=== PATIENT | female | born 1950 | race Caucasian/White ===

== ENCOUNTER 2018-01-01 17:56 | Observation (INO) | payer OTHER ==
--- OUTSIDE RECORDS SUMMARY | 2018-01-01 17:58 | XMS REPORT | Clinical Summary ---
:1950 Author Organization [facility] Address [address] [place] [address] Care Team Providers Name Role Phone Jose Armando Faulkner MD Primary Care Provider Allergies Active Allergy Reactions Severity Noted Date Comments Mepenzolate [place] 03/21/2016 Codeine Itching 01/18/2016 Current Medications Prescription Sig. Disp. Refills Start End Date Status Date cholecalciferol, vitamin Take 2,000 Active D3, (VITAMIN D3) 2,000 Units by unit capsule capsule mouth daily. ascorbic acid, vitamin Take 500 mg Active C, (VITAMIN C) 500 MG by mouth tablet daily. aspirin (ECOTRIN) 81 MG Take 81 mg Active enteric coated tablet by mouth daily. magnesium oxide 250 mg Take 250 mg Active tablet by mouth daily. selenium 50 mcg tablet Take 50 mcg Active by mouth daily. [id number] Take by Active p-astx 1000-130(40-80) mouth daily. mg capsule omeprazole (PriLOSEC) 40 Take 40 mg Active MG capsule by mouth daily. coenzyme Q10 (CO Q-10) Take 100 mg Active 100 mg capsule by mouth daily. LUTEIN ORAL Take 1 Active tablet by mouth daily. rosuvastatin (CRESTOR) Take 40 mg Active 40 MG tablet by mouth daily. denosumab (PROLIA) 60 Inject 60 mg Active mg/mL syringe syringe under the skin once. EVERY 6 MONTHS DOCUSATE CALCIUM (STOOL Take 1 Active SOFTENER ORAL) tablet by mouth daily. anastrozole (ARIMIDEX) 1 Take 1 30 tablet 6 06/27/201 06/27/ Active mg chemo tablet tablet (1 mg 7 18 total) by mouth daily. hydroCHLOROthiazide TAKE ONE 30 tablet 11 Active (HYDRODIURIL) 25 MG TABLET BY 8 tablet MOUTH ONCE DAILY esomeprazole magnesium 20 mg as Active (NEXIUM ORAL) needed. GARLIC ORAL Take by Active mouth. glucosamine sulfate Take by Active (GLUCOSAMINE ORAL) mouth. vitamin B complex Take by Active (VITAMINS B COMPLEX mouth. ORAL) RESVERATROL ORAL Take by Active mouth. UNABLE TO FIND [facility] CHROMIUM ORAL Take by Active mouth. evolocumab (REPATHA Inject 1 mL 6 Syringe 4 Active SURECLICK) 140 mg/mL pen (140 mg 8 injector injection total) under the skin take as directed (every 2 weeks). Every 2 weeks metoprolol tartrate Take 1 180 tablet 3 12/25/19 Active (LOPRESSOR) 50 mg tablet tablet (50 8 19 mg total) by mouth 2 (two) times a day. valsartan (DIOVAN) 320 Take 1 90 tablet 4 12/27/19 Active MG tablet tablet (320 8 19 mg total) by mouth daily. pantoprazole (PROTONIX) Take 1 30 tablet 2 06/27/20 Discontinued 40 MG EC tablet tablet (40 6 17 mg total) by mouth daily. losartan (COZAAR) 100 MG Take 50 mg 12/25/19 Discontinued tablet by mouth 2 18 (two) times a day. metoprolol tartrate Take 50 mg 12/25/19 Discontinued (LOPRESSOR) 100 mg by mouth 2 18 tablet (two) times a day. resveratrol 100 mg Take by 11/20/19 Discontinued capsule mouth. 18 letrozole (FEMARA) 2.5 Take 1 90 tablet 3 01/17/20 Discontinued mg chemo tablet tablet (2.5 7 17 mg total) by mouth daily. hydroCHLOROthiazide Take 1 30 tablet 11 06/27/20 Discontinued (HYDRODIURIL) 25 MG tablet (25 7 17 tablet mg total) by mouth daily. NEXIUM 20 mg capsule TAKE ONE 30 capsule 0 02/09/20 Discontinued CAPSULE BY 7 17 MOUTH EVERY DAY letrozole (FEMARA) 2.5 Take 1 90 tablet 3 06/27/20 Discontinued mg chemo tablet tablet (2.5 7 17 mg total) by mouth daily. esomeprazole (NexIUM) 20 TAKE ONE 30 capsule 0 03/09/20 Discontinued MG capsule CAPSULE BY 7 17 MOUTH ONCE DAILY esomeprazole (NexIUM) 20 TAKE ONE 30 capsule 0 06/27/20 Discontinued MG capsule CAPSULE BY 7 17 MOUTH ONCE DAILY CHROMIUM ORAL Take 1 11/20/19 Discontinued tablet by 18 mouth daily. GLUCOSAMINE/CHONDROITIN Take by 11/20/19 Discontinued SULF A mouth. 18 (GLUCOSAMINE-CHONDROITIN ORAL) b complex vitamins Take 1 11/20/19 Discontinued capsule capsule by 18 mouth daily. GARLIC ORAL Take by 11/20/19 Discontinued mouth. 18 esomeprazole (NexIUM) 40 Take 1 90 capsule 3 11/20/19 Discontinued MG capsule capsule (40 7 18 mg total) by mouth daily before breakfast. evolocumab (REPATHA Inject 1 mL 6 Syringe 4 12/25/19 Discontinued SURECLICK) 140 mg/mL pen (140 mg 7 18 injector injection total) under the skin take as directed (every 2 weeks). Every 2 weeks losartan (COZAAR) 100 MG Take 0.5 180 tablet 4 12/27/19 Discontinued tablet tablets (50 8 18 mg total) by mouth 2 (two) times a day. 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 01/18/2016 Estrogen receptor positive 01/18/2016 Encounters Date Type Specialty Care Team Description 12/28/2017 Telephone Neurology David Caldera MD 12/26/2017 Nurse Only Oncology Alyson, Osteopenia of multiple Rayna Sahu MD sites (Primary Dx) 12/26/2017 Lab Lab Alyson, Malignant neoplasm of Rayna Sahu MD female breast, unspecified estrogen receptor status, unspecified laterality, unspecified site of breast 12/26/2017 Office Visit Oncology Alyson, 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 (Primary Dx); Rayna Sahu MD Osteopenia of multiple sites 12/26/2017 Office Visit Neurology David Caldera, Cerebral infarction, unspecified mechanism (Primary Dx) 12/26/2017 Orders Only Oncology Chuy, Malignant neoplasm of Anjali, CHERELLE female breast, unspecified estrogen receptor status, unspecified laterality, unspecified site of breast (Primary Dx) 12/24/2017 Office Visit Cardiology Brielle West Cerebrovascular accident ( CVA) due to occlusion of right posterior cerebral artery (Primary Dx); MD Joanna Essential hypertension; Hyperlipidemia, unspecified hyperlipidemia type; Atherosclerosis of elem coronary artery of elem heart without angina pectoris 11/27/2017 Refill Neurology David Caldera MD 11/26/2017 Hospital Encounter Procedural Cardiology Brielle West Essential hypertension MD Joanna 11/19/2017 Office Visit Cardiology Brielle West Essential hypertension ( Primary Dx); MD Joanna Cerebrovascular accident (CVA) due to occlusion of right posterior cerebral artery; Hyperlipidemia, unspecified hyperlipidemia type; Chest pain, unspecified type; Palpitations 10/17/2017 Office Visit Otolaryngology Devol, Tongue lesion (Primary Edwin Logan MD Dx) 08/09/2017 Hospital Encounter Radiology Niravath, 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; Rayna Sahu MD Osteopenia of multiple sites 08/09/2017 Hospital Encounter Radiology Niravath, 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; Rayna Sahu MD Osteopenia of multiple sites 08/09/2017 Ancillary Orders Radiology Niravath, 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; Rayna Sahu MD Osteopenia of multiple sites 07/12/2017 Telephone Neurology David Caldera MD 07/12/2017 Orders Only Neurology David Caldera MD 07/12/2017 Telephone Neurology David Caldera MD 06/27/2017 Nurse Only Oncology David Caldera Cerebral infarction, MD unspecified mechanism (Primary Dx) 06/27/2017 Nurse Only Oncology Hermelindo, Osteopenia of multiple Sukhwinder sites (Primary Dx) MD Alyson Diaz Polly A., MD 06/27/2017 Lab Lab David Caldera Cerebral infarction, MD unspecified mechanism 06/27/2017 Office Visit Oncology Alyson, 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 (Primary Dx); Rayna Sahu MD Osteoporosis, unspecified osteoporosis type, unspecified pathological fracture presence 06/27/2017 Office Visit Neurology David Caldera Cerebral infarction, MD unspecified mechanism (Primary Dx) 06/27/2017 Transcribe Orders Neurology David Caldera, Cerebral infarction, unspecified mechanism (Primary Dx) 06/27/2017 Orders Only Oncology Darío, 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 (Primary Dx); LIONEL Mejia Osteopenia of multiple sites 06/27/2017 Refill Oncology Jackie Chanel MA 05/29/2017 Orders Only Oncology Samuel Sylvester, PharmD 04/25/2017 Refill Oncology Sukhwinder Casarez MD 04/04/2017 Office Visit Otolaryngology Carlos, Tongue lesion (Primary Edwin Logan MD Dx) 03/09/2017 Refill Oncology Sukhwinder Casarez MD 02/08/2017 Refill Oncology Sukhwinder Casarez MD 01/16/2017 Nurse Only Oncology Hermelindo, Osteopenia (Primary Sukhwinder Dx) MD Alyson Diaz Polly A., MD 01/16/2017 Office Visit Oncology Hermelindo, 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 (Primary Dx); Sukhwinder Estrogen receptor positive MD Joe 01/08/2017 Refill Oncology Sukhwinder Casarez MD 01/01/2017 Office Visit Otolaryngology Carlos, Tongue lesion (Primary Edwin Logan MD Dx) after 12/31/2016 Family History Medical History Relation Name Comments Heart disease Father Transient ischemic attack Father Heart disease Mother Transient ischemic attack Mother Cancer Paternal Aunt Relation Name Status Comments Father Mother Paternal Aunt Social History Tobacco Use Types Packs/Day Years Used Date Never Smoker Smokeless Tobacco: Never Used Alcohol Use Drinks/Week oz/Week Comments No Sex Assigned at Date Recorded Not on file Last Filed Vital Signs Vital Sign Reading Time Taken Blood Pressure 135/60 12/26/2017 3:12 PM CDT Pulse 61 12/26/2017 3:12 PM CDT Temperature 37.3 C (99.1 F) 12/26/2017 2:27 PM CDT Respiratory Rate 18 12/26/2017 2:27 PM CDT Oxygen Saturation 96% 12/26/2017 2:27 PM CDT Inhaled Oxygen Concentration - - Weight 66.2 kg (146 lb) 12/26/2017 3:12 PM CDT Height 157.5 cm (5' 2") 12/26/2017 3:12 PM CDT Body Mass Index 26.7 12/26/2017 3:12 PM CDT Plan of Treatment Date Type Specialty Care Team Description 07/08/2018 Nurse Only Oncology Rayna Shields MD [address] [facility] [address] [place], [place] [id number] 07/08/2018 Office Visit Oncology Rayna Shields MD [address] [facility] [address] [place], [place] [phone] 07/08/2018 Office Visit Neurology David Caldera MD [address] [facility] [address] [place], [place] [phone] Health Maintenance Due Date Last Done Comments COLONOSCOPY 2000 MAMMOGRAM 2000 SHINGRIX VACCINE (#1) 2000 ZOSTER VACCINE 2010 PNEUMOCOCCAL POLYSACCHARIDE VACCINE AGE 65 AND OVER 2015 PNEUMOCOCCAL-13 2015 INFLUENZA VACCINE 04/03/2018 Procedures Procedure Name Priority Date/Time Associated Comments Diagnosis ECHOCARDIOGRAM STRESS Routine 11/26/2017 2:16 Essential Results for this TEST TREADMILL PM CDT hypertension procedure are in the results section. CV STRESS TEST Routine 11/26/2017 2:16 Essential Results for this ECHOCARDIOGRAPHY PM CDT hypertension procedure are in the results section. after 12/31/2016 Results Estimated GFR (12/26/2017 1:57 PM)Only the most recent of3 resultswithin the time period is included. Component Value Ref Range GFR Non Af Amer 71 mL/min/1.73 m2 GFR Af Amer 87 mL/min/1.73 m2 Comment: Chronic kidney disease: <60 mL/min/1.73m2 Kidney failure: <15 mL/min/1.73m2 The estimated GFR is calculated from the IDMS-traceable Modification of Diet in Renal Disease Equation. The accuracy of the calculation is poor when the creatinine is normal. Calculated values >90 mL/min/1.73m2 are not reported. This equation has not been validated in children (<18 years), women, the elderly (>70 years), or ethnic groups other than Caucasians and Americans. Specimen Performing Laboratory Plasma specimen [facility] DEPARTMENT OF PATHOLOGY AND GENOMIC MEDICINE [address] [place] [address] CBC with platelet and differential (12/26/2017 1:57 PM)Only the most recent of3 resultswithin the time period is included. Component Value Ref Range WBC 7.88 4.50 - 11.00 k/uL RBC 4.27 4.20 - 5.50 m/uL HGB 12.9 12.0 - 16.0 g/dL HCT 39.2 37.0 - 47.0 % MCV 91.8 82.0 - 100.0 fL MCH 30.2 27.0 - 34.0 pg MCHC 32.9 31.0 - 37.0 g/dL RDW - SD 41.9 37.0 - 55.0 fL MPV 10.3 8.8 - 13.2 fL Platelet count 266 150 - 400 k/uL Nucleated RBC 0.00 /100 WBC Neutrophils 63.7 39.0 - 69.0 % Lymphocytes 23.9 (L) 25.0 - 45.0 % Monocytes 9.9 0.0 - 10.0 % Eosinophils 1.8 0.0 - 5.0 % Basophils 0.4 0.0 - 1.0 % Immature granulocytes 0.3Comment: "Immature granulocytes" 0.0 - 1.0 % (promyelocytes, myelocytes, metamyelocytes) Specimen Performing Laboratory Blood [facility] DEPARTMENT OF PATHOLOGY AND GENOMIC MEDICINE [address] [place] [address] Ionized calcium (12/26/2017 1:57 PM)Only the most recent of2 resultswithin the time period is included. Component Value Ref Range pH 7.34 Ionized calcium 1.29 1.11 - 1.32 mmol/L Specimen Performing Laboratory Plasma specimen [facility] DEPARTMENT OF PATHOLOGY AND GENOMIC MEDICINE [address] [place] [address] Lipid panel (12/26/2017 1:57 PM)Only the most recent of2 resultswithin the time period is included. Component Value Ref Range Cholesterol 126 <200 mg/dL Triglycerides 164 (H) <150 mg/dL HDL cholesterol 44 >40 mg/dL LDL cholesterol 64Comment: Result obtained by direct LDL <100 mg/dL measurement Lipid panel interpretation SeeBelow Comment: Total Cholesterol (mg/dL) <200 Desirable 694-539Jyxhjormvz-dxjr >=240High Triglycerides (mg/dL) <150 Normal 111-089Axdblcdutr-says 200-499High >=500Very high HDL Cholesterol (mg/dL) <40Low (male) <40Low (female) LDL Cholesterol (mg/dL) <100 Optimal 100-129Near or above optimal 950-306Dtfyewmesb-mqxq 160-189High >=190Very high Risk Catergories that modify LDL goals. Risk CatergoriesLDL goal (mg/dL) CHD and CHD risk equivalent<100 (10-year risk >20%) Multiple (2+) risk factors <130 (10-year risk=<20%) 0-1 risk factors <160 (<10-year risk) Defining levels of lipids in metabolic syndrome Triglycerides>=150 mg/dL HDL Cholesterol Men<40 mg/dL Women<40 mg/dL Non-HDL cholesterol is a second target for therapy in persons with high triglycerides (>=200 mg/dL) Specimen Performing Laboratory Plasma specimen [facility] DEPARTMENT OF PATHOLOGY AND GENOMIC MEDICINE [address] [place] [address] Comprehensive metabolic panel (12/26/2017 1:57 PM)Only the most recent of4 resultswithin the time period is included. Component Value Ref Range Sodium 140 135 - 148 mEq/L Potassium 3.8 3.5 - 5.0 mEq/L Chloride 101 98 - 112 mEq/L CO2 28 24 - 31 mEq/L Anion gap 11 7 - 15 mEq/L Comment: Starting from December , anion gap calculation no longer incorporates potassium. Please note the change. BUN 15 8 - 23 mg/dL Creatinine 0.8 0.5 - 0.9 mg/dL Glucose 100 (H) 65 - 99 mg/dL Calcium 9.9 8.8 - 10.2 mg/dL Protein 7.3 6.3 - 8.3 g/dL Comment: Sparks 4.6-7.0 g/dL 1 week 4.4-7.6 g/dL 7 months-1year5.1-7.3 g/dL 1-2 years5.6-7.5 g/dL >3 years6.0-8.0 g/dL 18-150 6.3-8.3 g/dL Albumin 3.8 3.5 - 5.0 g/dL A/G ratio 1.1 0.7 - 3.8 Alkaline phosphatase 64 35 - 104 U/L AST 26 10 - 35 U/L ALT 23 5 - 50 U/L Total bilirubin 0.3 0.0 - 1.2 mg/dL Specimen Performing Laboratory Plasma specimen [facility] DEPARTMENT OF PATHOLOGY AND GENOMIC MEDICINE [address] [place] [address] Echocardiogram stress Doppler with contrast 3d if needed (11/26/2017 2:16 PM) Specimen Performing Laboratory [facility] [address] [place] [address] Narrative [facility] Stress Echocardiography Report Pat.Name:SAKINA LOERA Pat.ID:[id number] .Date: 11/26/2017 Refer.MD:ELYSSA LONG MD Exam Time: 1:07:00 PMStudy Type:Stress Echo Height:62inWeight:154lb BSA: 1.71 m2 DOBAge:1950,67Y Sex: FEMALEBP:127/59 HR:68 bpm Sonogrphr: Mikki Sotelo, RCS, RCCS, CCT Pat. Stat.:OutpatientRoom:[facility] TapeVol: [facility], Study Status:Revised Echo Event ID:[id number] Order ID:[id number] Reason for Study:Hypertension; re-eval no status change History / Clinical:Hypertension Procedures:2D Echo, Colorflow Doppler Race: SUMMARY: Overall Stress Interp: Normal Stress echo. No evidence ofischemia. FINDINGS: RESTING FINDINGS LV: LV size is normal. LV EF is normal. Overall wall motion is normal.Estimated EF is 60-64%. RV: RV size is upper limits of normal. RV systolic function is normal. LA: LA size is normal. RA: RA size is normal. AO: Aortic root diameter is normal. MERCED: No pericardial effusion. AV: No structural AV abnormalities noted. MV: No structural MV abnormalities noted. PV: No structural PV abnormalities noted. TV: No structural TV abnormalities noted. A trace of tricuspid regurgitation Mckeon: LV relaxation is reduced, appropriate for age. LV filling pressureis normal. Other:Insufficient TR jet to estimate PA systolic pressure. STRESS FINDINGS LV: LV EF is normal. Overall wall motion is normal. Estimated EF is65-69% STRESS: Baseline Vital Signs:Intervention: Treadmill ECG: NormalProtocol:Wilson HR:68Duration: 06:29 BP:127/59METS: 8.4 Stress Test Results: Max HR:139 Target HR: 153 % Target:91 % Max BP:196/84O2 sat:98 % Max RPP: 63264 Symptoms and Complications: Terminated: Patient achieved greater than or equal 85% maximal predicted heart rate for age Overall Stress Interp: Normal Stress echo. No evidence ofischemia. Stress ECG Interp: Normal Stress ECG. No ST changes occurred during stress., Blood Pressure during stress suggestive of hypertensive response MEASUREMENTS: 2D Parasternal Long Orion LVOT 1.9 cmLA Ds3.8 cm LVIDd3.9 cmIndex 2.3 cm/m Ao An2.2 cm LVIDs2.7 cmAo Rtd 2.8 cm Index1.6 cm/m LV%fs 32.6 % LV Djls503.4 g(87-129) IVSd 1 cmLVM Index 65.7 g/m2 LVPWd0.9 cmRWT0.5 LA Volume LA Vol45.9 mlIndex 26.9 ml/m Signed 11/27/2017 4:35:14 PM Elyssa Long M.D. Revised Procedure Note Interface, Radiology Results In - 11/27/2017 4:35 PM CDT [facility] Stress Echocardiography Report Pat.Name: SAKINA LOERA Pat.ID: [id number] St.Date: 11/26/2017 Refer.MD: ELYSSA LONG MD Exam Time: 1:07:00 PM Study Type:Stress Echo Height: 62in Weight: 154lb BSA: 1.71 m2 Age: 10 1950,67Y Sex: FEMALE BP: 127/59 HR: 68 bpm Sonogrphr: Mikki Sotelo, RCS, RCCS, CCT Pat. Stat.:Outpatient Room: [facility] Tape Vol: [facility], Study Status:Revised Echo Event ID:[id number] Order ID: [id number] Reason for Study:Hypertension; re-eval no status change History / Clinical:Hypertension Procedures:2D Echo, Colorflow Doppler Race: SUMMARY: Overall Stress Interp: Normal Stress echo. No evidence of ischemia. FINDINGS: RESTING FINDINGS LV: LV size is normal. LV EF is normal. Overall wall motion is normal. Estimated EF is 60-64%. RV: RV size is upper limits of normal. RV systolic function is normal. LA: LA size is normal. RA: RA size is normal. AO: Aortic root diameter is normal. MERCED: No pericardial effusion. AV: No structural AV abnormalities noted. MV: No structural MV abnormalities noted. PV: No structural PV abnormalities noted. TV: No structural TV abnormalities noted. A trace of tricuspid regurgitation Mckeon: LV relaxation is reduced, appropriate for age. LV filling pressure is normal. Other: Insufficient TR jet to estimate PA systolic pressure. STRESS FINDINGS LV: LV EF is normal. Overall wall motion is normal. Estimated EF is 65-69% STRESS: Baseline Vital Signs: Intervention: Treadmill ECG: Normal Protocol: Wilson HR: 68 Duration: 06:29 BP: 127/59 METS: 8.4 Stress Test Results: Max HR: 139 Target HR: 153 % Target: 91 % Max BP: 196/84 O2 sat: 98 % Max RPP: 01191 Symptoms and Complications: Terminated: Patient achieved greater than or equal 85% maximal predicted heart rate for age Overall Stress Interp: Normal Stress echo. No evidence of ischemia. Stress ECG Interp: Normal Stress ECG. No ST changes occurred during stress., Blood Pressure during stress suggestive of hypertensive response MEASUREMENTS: 2D Parasternal Long Orion LVOT 1.9 cm LA Ds 3.8 cm LVIDd 3.9 cm Index 2.3 cm/m Ao An 2.2 cm LVIDs 2.7 cm Ao Rtd 2.8 cm Index 1.6 cm/m LV%fs 32.6 % LV Mass 112.4 g (87-129) IVSd 1 cm LVM Index 65.7 g/m2 LVPWd 0.9 cm RWT 0.5 LA Volume LA Vol 45.9 ml Index 26.9 ml/m Signed 11/27/2017 4:35:14 PM Elyssa Long M.D. Revised Cv exercise treadmill stress (nuclear or echo) (11/26/2017 2:16 PM) Component Value Ref Range Resting HR 67 Resting BP 127 Peak MET Achieved 8.4 Protocol Name WILSON Time in Exercise Phase 00:06:29 Max Systolic BP 196 Max Diastolic BP 84 Max Heart Rate 139 Max Predicted Heart Rate 153 Target HR Formula (220 - Age)*85% Test Indication HYPERTENSION Arrhy During Ex ECG Interp Before EX ECG Interp During Ex Ex Summary Comment Overall HR Response to Exercise Overall BP Response To Exercise Reason for Termination Fatigue Stress Test Impression Waveform interpreted in report associated with image study. No interpretation is provided as part of this Stress ECG report.--Electronically Signed By Ethan LUNA, Elyssa Rainey ([id number]), web content editor Shadia Chan ([id number]) on 11/29/2017 8:34:40 AM Specimen Performing Laboratory [facility] MUSE [address] [place] [address] Ct cardiac calcium score (11/26/2017 12:04 PM) Specimen Performing Laboratory [facility] [address] [place] [address] Narrative Nuclear Cardiology and Cardiac CT [address] [place] [address] CT Calcium Scoring Report Pat.Name:SAKINA LOERA Pat.ID:[id number] .Date: 11/26/2017 Refer.MD:BRIELLE WEST MD Exam Time: 11:59:00 AM Study Type:CT Calcium Scoring Height:60inWeight:152lb BSA: 1.66 m2 DOBAge:1950,67Y Sex: FEMALEHR: 63 bpm Nuclear Tech:RT Forrest(NM)(CT), [facility] CPT - 4: [facility] [employer] Nuclear Event ID:[id number] Order ID:[id number] Procedures:CT Flash mode SUMMARY: Technique: Sequential 3mm CT cuts were obtained through the chest using the Siemens Somatom Force CT scanner with ECG gating.Interactive image viewing and volumetric display and analysis were also performed.The CAC score was quantified using the Agaston scoring method. Non-contrast Cardiac CT results are as follows: The total Coronary Artery Calcium Score (CACS) is 270 .Calcium is distributed in the coronary arteries as follows: Left main: 5 .Left Anterior Descending (LAD): 178 .Left Circumflex (LCx): 34 .Right Coronary Artery (RCA): 53 . The non-contrast CT shows a normal cardiac size, no pericardial abnormalities, a normal aortic root of 2.9cm, a normal thoracic ascending aorta of 2.8cm, and a normal descending thoracic aorta of 2.0cm. The left main and right coronary arteries appear to originate normally from the left and right sinus of Valsalva.The right coronary artery is dominant. Calcification in the aortic arch and descending thoracic aorta. Non-Cardiac Findings:Limited lung araiza demonstrate no significant abnormality. Bilateral breast implants. Conclusion: Abnormal non-contrast cardiac CT. The coronary artery calcium score indicates a moderate extent of coronary atherosclerosis with a 1-2% / year risk of a major cardiac event.The CACS is at the 89th percentile based on age and gender. Recommendation: (1) Intensive risk factor modification is indicated to prevent further progression of coronary atherosclerosis.Unless contraindicated, low dose aspirin (81mg) is recommended in addition to treatment of hyperlipidemia with target LDL levels <70mg/dl. (2) Stress myocardial perfusion imaging may be helpful in selected patients such as those with metabolic syndrome or diabetes mellitus in whom silent myocardial ischemia is more prevalent. Signed 11/28/2017 09:24 AM Eduardo Delgado MD Procedure Note Interface, Radiology Results In - 11/28/2017 9:24 AM CDT Nuclear Cardiology and Cardiac CT [address] [place] [address] CT Calcium Scoring Report Pat.Name: SAKINA LOERA Pat.ID: [id number] .Date: 11/26/2017 Refer.MD: BRIELLE WEST MD Exam Time: 11:59:00 AM Study Type:CT Calcium Scoring Height: 60in Weight: 152lb BSA: 1.66 m2 Age: 10 1950,67Y Sex: FEMALE HR: 63 bpm Nuclear Tech:Alexei Oneal RT(NM)(CT), [facility] CPT - 4: [facility] [employer] Nuclear Event ID:[id number] Order ID: [id number] Procedures:CT Flash mode SUMMARY: Technique: Sequential 3mm CT cuts were obtained through the chest using the Siemens Somatom Force CT scanner with ECG gating. Interactive image viewing and volumetric display and analysis were also performed. The CAC score was quantified using the Agaston scoring method. Non-contrast Cardiac CT results are as follows: The total Coronary Artery Calcium Score (CACS) is 270 . Calcium is distributed in the coronary arteries as follows: Left main: 5 . Left Anterior Descending (LAD): 178 . Left Circumflex (LCx): 34 . Right Coronary Artery (RCA): 53 . The non-contrast CT shows a normal cardiac size, no pericardial abnormalities, a normal aortic root of 2.9cm, a normal thoracic ascending aorta of 2.8cm, and a normal descending thoracic aorta of 2.0cm. The left main and right coronary arteries appear to originate normally from the left and right sinus of Valsalva. The right coronary artery is dominant. Calcification in the aortic arch and descending thoracic aorta. Non-Cardiac Findings: Limited lung araiza demonstrate no significant abnormality. Bilateral breast implants. Conclusion: Abnormal non-contrast cardiac CT. The coronary artery calcium score indicates a moderate extent of coronary atherosclerosis with a 1-2% / year risk of a major cardiac event. The CACS is at the 89th percentile based on age and gender. Recommendation: (1) Intensive risk factor modification is indicated to prevent further progression of coronary atherosclerosis. Unless contraindicated, low dose aspirin (81mg) is recommended in addition to treatment of hyperlipidemia with target LDL levels <70mg/dl. (2) Stress myocardial perfusion imaging may be helpful in selected patients such as those with metabolic syndrome or diabetes mellitus in whom silent myocardial ischemia is more prevalent. Signed 11/28/2017 09:24 AM Eduardo Delgado MD ECG 12 lead (11/19/2017 9:08 AM) Component Value Ref Range Ventricular rate 62 Atrial rate 62 TX interval 184 QRSD interval 88 QT interval 410 QTC interval 416 P axis 1 69 QRS axis 1 37 T wave axis 64 EKG impression Normal sinus rhythm-Normal ECG- Specimen Performing Laboratory [facility] [place] [address] [place] [address] Bone Density (08/09/2017 2:00 PM) Specimen Performing Laboratory [facility] [address] [place] [address] Narrative EXAMINATION:BONE DENSITY CLINICAL HISTORY:C50.912 Malignant neoplasm of unspecified site of left female breast, M85.89 Other specified disorders of bone density and structure multiple sites, Annual COMPARISON:None. The results of this study expressed as bone mineral density (BMD) were as follows: AP spine (L1-L4) BMD: 0.993 g/cm2 T-Score: -1.6 Z-Score: -0.2 Percent change: No prior exam. % Dual Femur (Total Mean): BMD: 0.747 g/cm2 T-Score: -2.1 Z-Score:-0.9 Percent change: No prior exam. % Femur FRAX: Risk factors: None. 10 year probability of fracture: 1.Major osteoporotic: 19.6% 2.Hip: 6.8% 3.Based on femur left neck BMD Trabecular Bone Score (TBS): TBS L1-L4: 1.374,normal. The 10 year probability of fracture, adjusted for TBS: 1.Major Osteoporotic Fracture: 16.9% 2.Hip Fracture:5.3% Impression:Bone mineral density values as above. Notes: *The world health organization (WHO) has classified the patient's T-score as follows: Normal=T-score at or above -1.0 SD Osteopenia=T-score between -1.0 and -2.5 SD Osteoporosis=T-score at or below minus 2.5 SD For premenopausal women, men under the age 50 years, and children the WHO classification does not apply. In these individuals please assess bone mineral density with Z scores for each skeletal site examined. Z scores above -2.0: Within expected range for age. Z scores lower than -2.0:Low bone density for age. The TBS is derived from the texture of the DEXA image and has been shown to be related to bone microarchitecture and fracture risk. This data provides information independent of BMD value; is used as a complement to the data obtained from the DEXA analysis and the clinical examination. The TBS can assist the healthcare professional in assessment of fracture risk and in monitoring the effect of treatments on patient over time. 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 The results of this study expressed as bone mineral density (BMD) were as follows: AP spine (L1-L4) BMD: 0.993 g/cm2 T-Score: -1.6 Z-Score: -0.2 Percent change: No prior exam. % Dual Femur (Total Mean): BMD: 0.747 g/cm2 T-Score: -2.1 Z-Score: -0.9 Percent change: No prior exam. % Femur FRAX: Risk factors: None. 10 year probability of fracture: 1. Major osteoporotic: 19.6% 2. Hip: 6.8% 3. Based on femur left neck BMD Trabecular Bone Score (TBS): TBS L1-L4: 1.374, normal. The 10 year probability of fracture, adjusted for TBS: 1. Major Osteoporotic Fracture: 16.9% 2. Hip Fracture: 5.3% Impression: Bone mineral density values as above. Notes: *The world health organization (WHO) has classified the patient's T-score as follows: Normal=T-score at or above -1.0 SD Osteopenia=T-score between -1.0 and -2.5 SD Osteoporosis=T-score at or below minus 2.5 SD For premenopausal women, men under the age 50 years, and children the WHO classification does not apply. In these individuals please assess bone mineral density with Z scores for each skeletal site examined. Z scores above -2.0: Within expected range for age. Z scores lower than -2.0: Low bone density for age. The TBS is derived from the texture of the DEXA image and has been shown to be related to bone microarchitecture and fracture risk. This data provides information independent of BMD value; is used as a complement to the data obtained from the DEXA analysis and the clinical examination. The TBS can assist the healthcare professional in assessment of fracture risk and in monitoring the effect of treatments on patient over time. [facility]-[id number] after 12/31/2016 Insurance Payer Benefit Plan / Group Subscriber ID Type Phone Address [employer] MED[employer]ARE PPO/PFFS/ERS [facility] xxxxxxxxx PPO Home: Carline MCCANN PT [phone] [place] [phone]
--- NOTE | 2018-01-01 18:38 | EDPHYS ---
Physician Documentation [facility] Name: Sakina Maya Age: 67 yrs Sex: Female : 1950 Arrival Date: 01/01/2018 Time: 18:00 Bed 6 Private MD: Jose Armando Faulkner S ED Physician Juan Manuel Hitchcock HPI: 01/01 18:34 This 67 yrs old Female presents to ER via Ambulatory with complaints of Chest kevin Pain, Weakness. 18:34 The patient or guardian reports chest pain that is located primarily in the substernal kevin area, anterior chest wall. Onset: just prior to arrival, today. The pain radiates to both arms. Associated signs and symptoms: Pertinent positives: lightheadedness. The chest pain is described as a heaviness, a pressure. Modifying factors: The symptoms are alleviated by nothing. the symptoms are aggravated by nothing. Severity of pain: At its worst the pain was mild in the emergency department the pain is unchanged. The patient has not experienced similar symptoms in the past. Historical: - Allergies: 18:13 Codeine; ch 18:13 Cantil; ch - PMHx: 18:13 CVA; Hypertension; breast cancer; remission; ch - PSHx: 18:13 double masectomy; Cholecystectomy; Hysterectomy; ch 18:13 Tonsillectomy; ch - Immunization history:: Adult Immunizations up to date. - Social history:: Smoking status: Patient/guardian denies using tobacco. - Family history:: not pertinent. ROS: 18:34 Constitutional: Negative for fever, chills, and weight loss, Eyes: Negative for injury, kevin pain, redness, and discharge, ENT: Negative for injury, pain, and discharge, Neck: Negative for injury, pain, and swelling, Respiratory: Negative for shortness of breath, cough, wheezing, and pleuritic chest pain, Abdomen/GI: Negative for abdominal pain, nausea, vomiting, diarrhea, and constipation, Back: Negative for injury and pain, : Negative for injury, bleeding, discharge, and swelling, MS/Extremity: Negative for injury and deformity, Skin: Negative for injury, rash, and discoloration, Neuro: Negative for headache, weakness, numbness, tingling, and seizure, Psych: Negative for depression, anxiety, suicide ideation, homicidal ideation, and hallucinations, Allergy/Immunology: Negative for hives, rash, and allergies, Endocrine: Negative for neck swelling, polydipsia, polyuria, polyphagia, and marked weight changes, Hematologic/Lymphatic: Negative for swollen nodes, abnormal bleeding, and unusual bruising. 18:34 Cardiovascular: Positive for chest pain. Exam: 18:34 Constitutional: This is a well developed, well nourished patient who is awake, alert, kevin and in no acute distress. Head/Face: Normocephalic, atraumatic. Eyes: Pupils equal round and reactive to light, extra-ocular motions intact. Lids and lashes normal. Conjunctiva and sclera are non-icteric and not injected. Cornea within normal limits. Periorbital areas with no swelling, redness, or edema. ENT: Nares patent. No nasal discharge, no septal abnormalities noted. Tympanic membranes are normal and external auditory canals are clear. Oropharynx with no redness, swelling, or masses, exudates, or evidence of obstruction, uvula midline. Mucous membranes moist. Neck: Trachea midline, no thyromegaly or masses palpated, and no cervical lymphadenopathy. Supple, full range of motion without nuchal rigidity, or vertebral point tenderness. No Meningismus. Chest/axilla: Normal chest wall appearance and motion. Nontender with no deformity. No lesions are appreciated. Cardiovascular: Regular rate and rhythm with a normal S1 and S2. No gallops, murmurs, or rubs. Normal PMI, no JVD. No pulse deficits. Respiratory: Lungs have equal breath sounds bilaterally, clear to auscultation and percussion. No rales, rhonchi or wheezes noted. No increased work of breathing, no retractions or nasal flaring. Abdomen/GI: Soft, non-tender, with normal bowel sounds. No distension or tympany. No guarding or rebound. No evidence of tenderness throughout. Back: No spinal tenderness. No costovertebral tenderness. Full range of motion. Skin: Warm, dry with normal turgor. Normal color with no rashes, no lesions, and no evidence of cellulitis. MS/ Extremity: Pulses equal, no cyanosis. Neurovascular intact. Full, normal range of motion. Neuro: Awake and alert, GCS 15, oriented to person, place, time, and situation. Cranial nerves II-XII grossly intact. Motor strength 5/5 in all extremities. Sensory grossly intact. Cerebellar exam normal. Normal gait. Psych: Awake, alert, with orientation to person, place and time. Behavior, mood, and affect are within normal limits. 18:34 Musculoskeletal/extremity: DVT Exam: No signs of deep vein thrombosis. no pain, no swelling, no tenderness, negative Homans' sign noted on exam, no appreciated bluish discoloration, no erythema, no increased warmth. Vital Signs: 18:13 BP 178 / 70; Pulse 63; Resp 15; Temp 98.7; Pulse Ox 99% on R/A; Weight 65.77 kg; Height ch 5 ft. (152.40 cm); Pain 1/10; 19:45 BP 189 / 67 RA; Pulse 63; Resp 20; Pulse Ox 97% on R/A; mt 19:45 BP 163 / 68 LA; mt 21:29 BP 174 / 64; Pulse 59; Resp 16; Pulse Ox 99% on R/A; tl2 18:13 Body Mass Index 28.32 (65.77 kg, 152.40 cm) [facility]: 18:19 Patient medically screened. [facility] 18:36 Data reviewed: vital signs, nurses notes, lab test result(s), EKG, radiologic studies, kevin plain films. 01/01 18:34 Order name: Basic Metabolic Panel [facility] 01/01 18:34 Order name: BNP; Complete Time: 19:24 [facility] 01/01 18:34 Order name: CBC with Diff; Complete Time: 19:24 [facility] 01/01 18:34 Order name: Ckmb [facility] 01/01 18:34 Order name: CPK [facility] 01/01 18:34 Order name: LFT's [facility] 01/01 18:34 Order name: Magnesium [facility] 01/01 18:34 Order name: PT-INR; Complete Time: 19:24 [facility] 01/01 18:34 Order name: Ptt, Activated; Complete Time: 19:24 [facility] 01/01 18:34 Order name: Troponin (emerg Dept Use Only); Complete Time: 19:24 [facility] 01/01 18:34 Order name: D-Dimer; Complete Time: 19:24 [facility] 01/01 18:34 Order name: Lipase [facility] 01/01 18:34 Order name: Basic Metabolic Panel EDMS 01/01 19:43 Order name: Urine Dipstick--Ancillary (enter results) em1 01/01 18:34 Order name: XRAY Chest (1 view); Complete Time: 19:24 [facility] 01/01 18:34 Order name: EKG; Complete Time: 18:35 [facility] 01/01 18:34 Order name: Cardiac monitoring; Complete Time: 19:20 [facility] 01/01 18:34 Order name: EKG - Nurse/Tech; Complete Time: 19:21 [facility] 01/01 18:34 Order name: IV Saline Lock; Complete Time: 19:21 [facility] 01/01 18:34 Order name: Labs collected and sent; Complete Time: 19:21 [facility] 01/01 18:34 Order name: O2 Per Protocol; Complete Time: 19:21 [facility] 01/01 18:41 Order name: CONS Physician Consult EDVT 01/01 18:41 Order name: Echo with Doppler EDVT 01/01 19:49 Order name: Urine Dipstick-Ancillary EDVT 01/01 22:45 Order name: CT EDVT 01/01 18:34 Order name: O2 Sat Monitoring; Complete Time: 19:21 [facility] 01/01 18:34 Order name: Urine Dipstick-Ancillary (obtain specimen); Complete Time: 19:21 [facility] 01/01 18:34 Order name: Bilateral blood pressure; Complete Time: 19:47 [facility] Administered Medications: Discontinued: NS 0.9% 1000 ml IV at 125 ml/hr continuous 19:08 Drug: Aspirin Chewable Tablet 162 mg Route: PO; sg 22:45 Follow up: Response: No adverse reaction tl2 19:10 Drug: NS 0.9% 1000 ml Route: IV; Rate: 125 ml/hr; Site: right antecubital; sg 19:52 Follow up: IV Status: Order to discontinue infusion tl2 19:10 Drug: Lovenox 1 mg/kg Route: Sub-Q; Site: right lower abdomen; sg 22:47 Follow up: Response: No adverse reaction tl2 19:52 Drug: NS 0.9% with KCl 20 mEq/L 1000 ml Route: IV; Rate: 125 ml/hr; Site: right tl2 antecubital; 22:44 Follow up: IV Status: Infusion continued upon admission tl2 19:52 Drug: Pepcid 20 mg Route: IVP; Site: right antecubital; tl2 22:45 Follow up: Response: No adverse reaction tl2 Disposition: 01/01/18 18:38 Hospitalization ordered by Leighton Khan for Observation. Preliminary diagnosis are Chest pain, unspecified, Essential (primary) hypertension, Hypokalemia, Abdominal tenderness - elvated lipase 137. - Bed requested for Telemetry/MedSurg (observation). - Status is Observation. tl2 - Condition is Stable. - Problem is new. - Symptoms have improved. UTI on Admission? No Signatures: Dispatcher [employer] EDMS Alisha Nieves, RN Jamilah Magaña ch, RN RN dw Gay, Steven, RN RN sg Anderson, Corey, MD MD cha Knox, Taylor, RN RN tl2
--- NOTE | 2018-01-01 18:38 | ER ---
Nurse's Notes [facility] Name: Sakina Maya Age: 67 yrs Sex: Female : 1950 Arrival Date: 01/01/2018 Time: 18:00 Bed 6 Private MD: Jose Armando Faulkner S Diagnosis: Chest pain, unspecified;Essential (primary) hypertension;Hypokalemia;Abdominal tenderness-elvated lipase 137 Presentation: 01/01 18:10 Presenting complaint: Patient states: reinaldo hand weakness for the past 2 hours, with ch slight chest pain. i was constipated and so i took a laxative last night, I have had diarrhea 4 times today but i dont think they are related. Transition of care: patient was not received from another setting of care. Onset of symptoms was January 01, 2018 at 16:00. Initial Sepsis Screen: Does the patient meet any 2 criteria? No. Patient's initial sepsis screen is negative. Does the patient have a suspected source of infection? No. Patient's initial sepsis screen is negative. Care prior to arrival: None. 18:10 Method Of Arrival: Ambulatory 18:10 Acuity: STEVEN 3 ch Triage Assessment: 18:13 General: Appears in no apparent distress. uncomfortable, Behavior is calm, cooperative, ch appropriate for age. Pain: Complains of pain in chest Pain currently is 2 out of 10 on a pain scale. Neuro: Reports numbness weakness weakness all over, chest aches, feels a little heavy. Cardiovascular: Reports chest pain. Historical: - Allergies: 18:13 Codeine; ch 18:13 Cantil; ch - PMHx: 18:13 CVA; Hypertension; breast cancer; remission; ch - PSHx: 18:13 double masectomy; Cholecystectomy; Hysterectomy; ch 18:13 Tonsillectomy; ch - Immunization history:: Adult Immunizations up to date. - Social history:: Smoking status: Patient/guardian denies using tobacco. - Family history:: not pertinent. Screenin:45 Abuse screen: Denies threats or abuse. Denies injuries from another. Nutritional sg screening: No deficits noted. Tuberculosis screening: No symptoms or risk factors identified. Never had TB. Fall Risk None identified. Assessment: 18:45 General: Appears in no apparent distress. comfortable, well groomed, well developed, sg well nourished, Behavior is calm, cooperative, appropriate for age. Pain: Denies pain. Quality of pain is described as reports bodyaches. Neuro: Level of Consciousness is awake, alert, obeys commands, Oriented to person, place, time, situation, Dermatologist And Dermatopathologist are equal bilaterally Moves all extremities. Full function Gait is steady, Speech is normal, Facial symmetry appears normal. 18:45 Cardiovascular: Heart tones S1 S2 present Capillary refill is brisk in bilateral sg fingers Patient's skin is warm and dry. Chest pain is denied. Respiratory: Airway is patent Respiratory effort is even, unlabored, Respiratory pattern is regular, symmetrical, Breath sounds are clear. GI: No signs and/or symptoms were reported involving the gastrointestinal system. 18:45 : No signs and/or symptoms were reported regarding the genitourinary system. EENT: No sg signs and/or symptoms were reported regarding the EENT system. Derm: Skin is normal. Musculoskeletal: Circulation, motion, and sensation intact. Range of motion: intact in all extremities, Swelling absent pt reports generalized weakness and fatigue since around 1500 today, reports " just not feeling quite right.". 19:15 General: Appears in no apparent distress. comfortable, Behavior is calm, cooperative, tl2 appropriate for age. Pain: Denies pain. Neuro: Level of Consciousness is awake, alert, obeys commands, Oriented to person, place, time, situation. Cardiovascular: Denies chest pain. Respiratory: Airway is patent Respiratory effort is even, unlabored, Respiratory pattern is regular, symmetrical. GI: No signs and/or symptoms were reported involving the gastrointestinal system. : No signs and/or symptoms were reported regarding the genitourinary system. Derm: Skin is normal. 20:30 Reassessment: Patient appears in no apparent distress at this time. Patient and/or tl2 family updated on plan of care and expected duration. Pain level reassessed. Patient is alert, oriented x 3, equal unlabored respirations, skin warm/dry/pink. 21:40 Reassessment: Patient appears in no apparent distress at this time. Patient and/or tl2 family updated on plan of care and expected duration. Pain level reassessed. Patient is alert, oriented x 3, equal unlabored respirations, skin warm/dry/pink. Dr. Chahal approved for pt to go upstairs. Vital Signs: 18:13 BP 178 / 70; Pulse 63; Resp 15; Temp 98.7; Pulse Ox 99% on R/A; Weight 65.77 kg; Height 5 ft. (152.40 cm); Pain /; 19:45 BP 189 / 67 RA; Pulse 63; Resp 20; Pulse Ox 97% on R/A; mt 19:45 BP 163 / 68 LA; mt 21:29 BP 174 / 64; Pulse 59; Resp 16; Pulse Ox 99% on R/A; tl2 18:13 Body Mass Index 28.32 (65.77 kg, 152.40 cm) ED Course: 18:00 Patient arrived in ED. mr 18:00 Jose Armando Faulkner MD is Private Physician. mr 18:11 Triage completed. ch 18:13 Arm band placed on left wrist. Patient placed in an exam room, on a stretcher. 18:17 Eric Vitale, CHERELLE is Primary Nurse. sg 18:19 Juan Manuel Hitchcock MD is Attending Physician. kevin 18:37 Leighton Khan MD is Hospitalizing Provider. kevin 18:45 Initial lab(s) drawn, by ED staff, sent to lab. Inserted saline lock: 20 gauge in right sg antecubital area, using aseptic technique. Blood collected. IV IV inserted by client technical support associate Uriel. Patient maintains SpO2 saturation greater than 95% on room air. 18:46 X-ray completed. Portable x-ray completed in exam room. Patient tolerated procedure kc2 well. 18:51 XRAY Chest (1 view) In Process Unspecified. EDMS 19:15 bus driver/monitor on. Pulse ox on. NIBP on. tl2 19:15 No provider procedures requiring assistance completed. tl2 20:48 Radha De, RN is Primary Nurse. tl2 21:40 Patient has correct armband on for positive identification. Placed in gown. Bed in low tl2 position. Call light in reach. Side rails up X 1. Adult w/ patient. 22:[address] via wheelchair. vm2 22:26 CT completed. care transferred to [facility] for transport upstairs. vm2 22:43 Patient admitted, IV remains in place. tl2 Administered Medications: Discontinued: NS 0.9% 1000 ml IV at 125 ml/hr continuous 19:08 Drug: Aspirin Chewable Tablet 162 mg Route: PO; sg 22:45 Follow up: Response: No adverse reaction tl2 19:10 Drug: NS 0.9% 1000 ml Route: IV; Rate: 125 ml/hr; Site: right antecubital; sg 19:52 Follow up: IV Status: Order to discontinue infusion tl2 19:10 Drug: Lovenox 1 mg/kg Route: Sub-Q; Site: right lower abdomen; sg 22:47 Follow up: Response: No adverse reaction tl2 19:52 Drug: NS 0.9% with KCl 20 mEq/L 1000 ml Route: IV; Rate: 125 ml/hr; Site: right tl2 antecubital; 22:44 Follow up: IV Status: Infusion continued upon admission tl2 19:52 Drug: Pepcid 20 mg Route: IVP; Site: right antecubital; tl2 22:45 Follow up: Response: No adverse reaction tl2 Outcome: 18:38 Decision to Hospitalize by Provider. [facility] 22:43 Admitted to Med/surg accompanied by tech, family with patient, via wheelchair, room 206.tl2 22:43 Condition: stable 22:43 Discharge instructions given to patient, Instructed on the need for admit. 22:47 Patient left the ED. tl2 Signatures: Dispatcher [employer] EDMS Alisha Nieves RN RN ch Gay, Steven, RN RN sg Anderson, Corey, MD MD cha Rivera, Maria mr Carr, Kelsie kc2 Knox, Taylor, RN RN tl2 Kaelyn, Oksana 2 Александр, Emely mt Corrections: (The following items were deleted from the chart) 18:12 18:10 Presenting complaint: Patient states: reinaldo hand weakness for the past 2 hours, ch with slight chest pain. 19:33 18:45 Neuro: Level of Consciousness is awake, alert, obeys commands, Oriented to sg person, place, time, situation, Dermatologist And Dermatopathologist are equal bilaterally Speech is normal, Facial symmetry appears normal, sg
[2018-01-01 18:55] LABS: Absolute Lymphocytes (CBC) 1.5 K/uL (0.7-4.9); Absolute Monocytes 0.9 K/uL (0.1-1.3); Absolute Neutrophil 5.1 K/uL (1.8-8.0); Basophils % 0.6 % (0-1.3); Eosinophils % 1.6 % (0-4.4); Hematocrit 38.2 % (36.0-45.0); MCH 30.8 pg (27.0-35.0); MPV 8.8 fL (7.6-11.3); Monocytes % 11.3 % (3.3-12.3); RBC Red Blood Cell Count 4.24 M/uL (3.86-4.86)
[2018-01-01] MEDS ORDERED: ASPIRIN 81 MG CHEWABLE TABLET ONE (19:04)
[2018-01-01] MEDS ORDERED: ENOXAPARIN 60 MG/0.6 ML SQ ONE (19:04)
[2018-01-01] MEDS ORDERED: NA CHLORIDE 0.9% 1,000 ML ONE (19:04)
[2018-01-01 19:05] LABS: Protime INR 0.93
--- NOTE | 2018-01-01 19:06 | RAD REPORT ---
EXAM DESCRIPTION: RAD - Chest Single View - 01/01/2018 6:53 pm CLINICAL HISTORY: Chest pain. COMPARISON: None. FINDINGS: Portable technique limits examination quality. The lungs are grossly clear. The heart is upper limit of normal in size. No displaced fractures. IMPRESSION: No acute intrathoracic process suspected.
[2018-01-01 19:24] LABS: Potassium 3.4 mEq/L (3.6-5.0)
[2018-01-01 19:30] LABS: Albumin 4.1 g/dL (3.2-5.5); Bilirubin Direct 0.1 mg/dL (0-0.2); Bilirubin Total 0.7 mg/dL (0.3-1.2); Magnesium 2.2 mg/dL (1.8-2.5); Protein, Total 6.9 g/dL (6.0-8.3)
[2018-01-01 19:38] LABS: CKMB Creatine Kinase MB 1.9 ng/ml (0.3-4.0)
[2018-01-01] MEDS ORDERED: NS KCL 20MEQ 1,000 ML IV ONE (19:45)
[2018-01-01] MEDS ORDERED: FAMOTIDINE 20 MG/2 ML VIAL IV ONE (19:47)
[2018-01-01 19:49] LABS: Urine Blood NEGATIVE (NEG); Urine Glucose NEGATIVE (NEG); Urine Protein NEGATIVE (NEG)
--- NOTE | 2018-01-01 21:47 | P.HP ---
Certification for Inpatient Patient admitted to: Observation With expected LOS: <2 Midnights Practitioner: I am a practitioner with admitting privileges, knowledge of patient current condition, hospital course, and medical plan of care. Services: Services provided to patient in accordance with Admission requirements found in Title 42 Section 412.3 of the Code of Federal Regulations Patient History Date of Service: 01/01/18 Reason for admission: weakness, chest pain, headache History of Present Illness: Ms Maya is a 67 years old woman with history of CVA, HTN, breast cancer, who came to ED complaining of generalized weakness. She states that last night took a laxative because she was constipated. This morning she had diarrhea, several episodes. She also had some nausea and profuse weakness. Other complaints is numbness in her both calf, heaviness in her hands, headache and chest pain. The chest pain was mild, rated 4/10, constant, across her chest. She had similar chest pain in the past. Lab work was mostly benign, except lipase which was elevated 130. Troponin I negative. EKG shows no ST-T abnormalities. Allergies codeine Allergy (Verified 01/01/18 20:50) Hives mepenzolate [From Cantil] Allergy (Verified 01/01/18 20:50) Hives - Past Medical/Surgical History -: CVA -: HTN -: breast cancer in remission -: bilateral mastectomy -: Cholecystectomy; Hysterectomy - Social History Smoking Status: Never smoker CD- Drugs: No Place of Residence: Home Review of Systems 10-point ROS is otherwise unremarkable Physical Examination - Physical Exam General: Alert, In no apparent distress, Other (lethargic) HEENT: Atraumatic, PERRLA, Mucous membr. moist/pink, EOMI, Sclerae nonicteric Neck: Supple, 2+ carotid pulse no bruit, No LAD, Without JVD or thyroid abnormality Respiratory: Clear to auscultation bilaterally, Normal air movement Cardiovascular: Regular rate/rhythm, Normal S1 S2 Gastrointestinal: Normal bowel sounds, No tenderness Musculoskeletal: No tenderness Integumentary: No rashes Neurological: Normal speech, Normal strength at 5/5 x4 extr, Normal tone, Normal affect Lymphatics: No axilla or inguinal lymphadenopathy Assessment and Plan - Problems (Diagnosis) (1) Elevated lipase Current Visit: Yes Status: Acute (2) HTN (hypertension) Current Visit: Yes Status: Acute Qualifiers: Hypertension type: essential hypertension Qualified Code(s): I10 - Essential (primary) hypertension (3) Volume depletion Current Visit: Yes Status: Acute (4) Hypokalemia Current Visit: Yes Status: Acute - Plan The patient will be admitted under observation due to clinical signs of dehydration, after have profuse diarrhea. Lipase level elevated, pending CT abd/ pelvis to R/O image consistent with pancreatitis. Will keep her NPO until have CT scan report. - Advance Directives Does patient have a Living Will: No Does patient have a Durable POA for Healthcare: No - Code Status/Comfort Care Code Status Assessed: Yes Code Status: Full Code
[2018-01-01] MEDS ORDERED: ACETAMINOPHEN 500 MG TAB PO PRN (22:09)
[2018-01-01] MEDS ORDERED: HYDRALAZINE HCL 20 MG/ML VIAL IV PRN (22:09)
[2018-01-01] MEDS ORDERED: ONDANSETRON 4 MG/2 ML VIAL IV PRN (22:09)
--- NOTE | 2018-01-01 22:45 | RAD REPORT ---
EXAM DESCRIPTION: CTAbdomen Pelvis W Contrast - 01/01/2018 10:30 pm CLINICAL HISTORY: Abdominal pain. Diarrhea and nausea. COMPARISON: None. TECHNIQUE: Biphasic CT imaging of the abdomen and pelvis was performed with 100 ml non-ionic IV cont rast. All CT scans are performed using dose optimization technique as appropriate and may include automated exposure control or mA/KV adjustment according to patient size. FINDINGS: The lung bases are clear.Small hiatal hernia. Cholecystectomy clips noted. The liver, spleen, pancreas, adrenal glands and kidneys are within normal limits. No bowel obstruction, free air, free fluid or abscess. 28 mm infrarenal abdominal aortic aneurysm see n with mild atherosclerosis. The appendix is not identified as a discrete structure, however, no seco ndary findings of appendicitis are identified. Sigmoid diverticulosis coli noted without diverticuli tis. No evidence of significant lymphadenopathy. Moderate lumbosacral degenerative changes. IMPRESSION: No acute intra-abdominal or pelvic finding. Sigmoid diverticulosis coli without diverticulitis.
[2018-01-01] MEDS: NA CHLORIDE 0.9% 1,000 ML IV SCH (23:34)
[2018-01-02 07:09] LABS: Absolute Lymphocytes (CBC) 1.8 K/uL (0.7-4.9); Absolute Monocytes 0.6 K/uL (0.1-1.3); Absolute Neutrophil 2.6 K/uL (1.8-8.0); Basophils % 0.5 % (0-1.3); Eosinophils % 2.5 % (0-4.4); Hematocrit 36.1 % (36.0-45.0); MCH 29.9 pg (27.0-35.0); MCV 90.4 fL (80-100); MPV 8.7 fL (7.6-11.3); Monocytes % 10.9 % (3.3-12.3)
[2018-01-02 07:27] LABS: ALT/SGPT 18 IU/L (10-60); AST/SGOT 16 IU/L (10-42); Albumin 3.6 g/dL (3.2-5.5); Alkaline Phosphatase 50 IU/L (42-121); BUN Blood Urea Nitrogen 9 mg/dL (6-20); Bicarbonate 25 mEq/L (21-31); Bilirubin Total 0.5 mg/dL (0.3-1.2); Glucose Level 94 mg/dL (65-120); Potassium 3.4 mEq/L (3.6-5.0); Protein, Total 6.2 g/dL (6.0-8.3); Sodium Level 139 mEq/L (135-145)
[2018-01-02] MEDS ORDERED: ASPIRIN EC 81 MG TAB PO SCH (09:00)
[2018-01-02] MEDS ORDERED: ANASTROZOLE 1 MG TAB PO SCH (09:00)
[2018-01-02] MEDS ORDERED: VALSARTAN 160 MG TAB PO SCH (09:00)
[2018-01-02] MEDS ORDERED: ENOXAPARIN 40 MG/0.4 ML SQ SCH (09:00)
[2018-01-02] MEDS ORDERED: METOPROLOL TAR 50 MG TAB PO SCH (09:00)
[2018-01-02] MEDS ORDERED: POTASSIUM CL SA 10 MEQ TAB PO ONE (09:00)
[2018-01-02] MEDS ORDERED: VITAMIN D 1000 UNIT TAB PO SCH (09:00)
[2018-01-02] MEDS ORDERED: LUTEIN 6 MG PO SCH (09:00)
[2018-01-02] MEDS: NA CHLORIDE 0.9% 1,000 ML IV SCH (10:10)
--- NOTE | 2018-01-02 10:23 | EKG ---
Test Date: 2018-01-01 Test Time: 18:23:24 Airport Operations Specialist: SHIVANI MEASUREMENT RESULTS: Intervals: Rate: 66 [place]: 174 QRSD: 92 QT: 434 QTc: 454 [place]: P: 56 [place]: 174 QRS: 35 T: 55 INTERPRETIVE STATEMENTS: Normal sinus rhythm Normal ECG No previous ECG available for comparison Electronically Signed On 01-02-18 10:22:45 CDT by Jose Juan Carrizales
[2018-01-02 11:50] LABS: A1c Component 0.46 mg/dL; Hemoglobin A1c 5.7 % (4-6.0)
--- NOTE | 2018-01-02 12:31 | ECHO ---
HEIGHT: 5 ft 0 in WEIGHT: 147 lb 9 oz DATE OF STUDY: 01/02/[address]: 2-DIMENSIONAL: YES M.MODE: YES DOPPLER: YES COLOR FLOW: YES TDS: NO PORTABLE: NO DEFINITY: NO BUBBLE STUDY: NO DIAGNOSIS: CHEST PAIN CARDIAC HISTORY: CATHERIZATION: NO SURGERY: NO PROSTHETIC VALVE: NO PACEMAKER: NO MEASUREMENTS (cm) DIASTOLIC (NORMALS) SYSTOLIC (NORMALS) IVSd 1.1 (0.6-1.2) LA Diam 3.6 (1.9-4.0) LVEF 62% LVIDd 3.5 (3.5-5.7) LVIDs 2.4 (2.0-3.5) %FS 32% LVPWd 1.1 (0.6-1.2) Ao Diam 2.6 (2.0-3.7) 2 DIMENSIONAL ASSESSMENT: RIGHT ATRIUM: NORMAL LEFT ATRIUM: NORMAL RIGHT VENTRICLE: NORMAL LEFT VENTRICLE: NORMAL TRICUSPID VALVE: NORMAL MITRAL VALVE: NORMAL PULMONIC VALVE: NORMAL AORTIC VALVE: NORMAL PERICARDIAL EFFUSION: NONE AORTIC ROOT: NORMAL LEFT VENTRICULAR WALL MOTION: NORMAL DOPPLER/COLOR FLOW: PHYSIOLOGICAL TRICUSPID REGURGITATION. NORMAL RIGHT VENTRICULAR SYSTOLIC PRESSURE. COMMENTS: NORMAL 2D ECHOCARDIOGRAM WITH DOPPLER. TECHNOLOGIST: CHI VICTOR RDCS
--- NOTE | 2018-01-02 15:54 | TREADMILL ---
70% H.R.: 107 85% H.R.: 130 90% H.R.: 138 100% H.R.: 153 DX: CHEST PAIN Date of Study: 01/02/18 Ht: 5 0 Wt: 147 lb 9 oz Consulting Physician: MIGUEL MEDICATIONS: TYLENOL, ARIMIDEX, ASPIRIN, LOVENOX, APRESOLINE, LOPRESSOR, ZOFRAN, PROTONIX, CRESTOR, DIOVAN. HISTORY: 67 YEAR OLD FEMALE WITH COMPLAINTS OF CHEST PRESSURE. MEDICAL HISTORY: CEREBRAL VASCULAR ACCIDENT, BREAST CANCER, MASECTOMY, CHOLECYSTECTOMY, HYSTERECTOMY, TONSILECTOMY. PHYSICIAL EXAMINATION: RESTING B.P.: 153/71 RESTING H.R.: 65 RESTING EKG: NORMAL PROTOCOL: NICOLE ROUTINE EXERCISE TIME: 6:49 MAXIMUM HEART RATE: 131 85 % OF PREDICTED B.P. AT PEAK STRESS: 174/60 H.R. AT 1 MINUTE POST EXERCISE: 97 IMPRESSION: STRESS TEST STOPPED DUE TO FATIGUE AND TARGET HEART RATE REACHED PER PROTOCOL. NO SUPRA VENTRICULAR TACHYCARIDA. NO VENTRICULAR TACHYCARDIA. NO PREMATURE VENTRICULAR TACHYCARDIA. NO PREMATURE VENTRICULAR COMPLEXES. DENIED CHEST PRESSURE/PAIN. NORMAL STRESS TEST, NO ST DEPRESSION.
--- NOTE | 2018-01-02 16:00 | CON ---
Additional Attending Physician: Dr. Fishman. Chief Complaint: Weakness all over her body. History Of Present Illness: Ms. Maya did not really have chest pain as the initial thing, but she ju st felt weak and lethargic. About a month ago, she had a nuclear stress test at [facility] that was n ormal. She also had a coronary calcium score that showed mild calcification. She has had 2 strokes and is being treated for dyslipidemia. Her baseline cholesterol was in the 400s, but on her present medical therapy, her total cholesterol is right around 200, almost at goal. She also has hypertensio n. Outpatient medications are valsartan 320, metoprolol tartrate 50, Crestor 40, Nexium, lutein, choleca lciferol, anastrozole, and aspirin. She had a cryptogenic strokes, and she has had breast cancer wit h bilateral mastectomy, chemo and radiation therapy in the past. Physical Examination: General: 5 feet tall, 147 pounds. HEENT: Normal. Lungs: Clear. Cardiac: Normal. Abdomen: Soft. Extremities: Normal. Normal distal pulses. Laboratory Data: Her total cholesterol is 122, HDL 42, triglycerides 122. All of her troponins are normal. Her blood sugar is 94. Social History: The patient uses no tobacco. Diagnostic Data: Her electrocardiogram is normal. Recommendation: I would recommend we do a routine stress test. If she can pass that I do not think she needs to be in the hospital any longer. BRYAN Voice ID: [id number] Report ID: [id number]
--- NOTE | 2018-01-02 16:46 | P.DS ---
Admission Date: 01/01/18 Discharge Date: 01/02/18 Disposition: ROUTINE DISCHARGE Discharge Condition: GOOD Reason for Admission: weakness, chest pain, headache Consultations: cardiology Dr. Carrizales Procedures: Exercise stress test - Problems (1) Elevated lipase Onset Date: 01/02/18 Current Visit: Yes Status: Acute (2) HTN (hypertension) Onset Date: 01/02/18 Current Visit: Yes Status: Acute Qualifiers: Hypertension type: essential hypertension Qualified Code(s): I10 - Essential (primary) hypertension (3) Hypokalemia Onset Date: 01/02/18 Current Visit: Yes Status: Acute (4) Volume depletion Onset Date: 01/02/18 Current Visit: Yes Status: Acute Brief History of Present Illness: From H&P Ms Maya is a 67 years old woman with history of CVA, HTN, breast cancer, who came to ED complaining of generalized weakness. She states that last night took a laxative because she was constipated. This morning she had diarrhea, several episodes. She also had some nausea and profuse weakness. Other complaints is numbness in her both calf, heaviness in her hands, headache and chest pain. The chest pain was mild, rated 4/10, constant, across her chest. She had similar chest pain in the past. Lab work was mostly benign, except lipase which was elevated 130. Troponin I negative. EKG shows no ST-T abnormalities. Hospital Course: Patient is a 67-year-old female who came into the hospital with diarrhea and chest pain. Patient was worked up for ACS which was ruled out troponin levels were negative. Patient was seen by cardiology and stress test was done which was negative. Echocardiogram showed normal ejection fraction, no wall motion abnormality. Patient also had some diarrhea which improved slowly with treatment she was placed on IV fluids. She was able to tolerate a diet her abdominal pain resolved she did not have any nausea or vomiting. Patient was then cleared for discharge Vital Signs/Physical Exam: Temp Pulse Resp BP Pulse Ox 97.8 F 57 16 138/65 97 01/02/18 12:00 01/02/18 12:00 01/02/18 12:00 01/02/18 12:00 01/02/18 12:00 General: Alert, In no apparent distress HEENT: Atraumatic, PERRLA, EOMI Neck: Supple, JVD not distended Respiratory: Clear to auscultation bilaterally, Normal air movement Cardiovascular: Regular rate/rhythm, Normal S1 S2 Gastrointestinal: Normal bowel sounds, No tenderness Musculoskeletal: No tenderness Integumentary: No rashes Neurological: Normal speech, Normal tone, Normal affect Lymphatics: No axilla or inguinal lymphadenopathy Laboratory Data at Discharge: WBC 5.1 K/uL (4.3-10.9) D 01/02/18 06:52 Hgb 12.0 g/dL (12.0-15.0) 01/02/18 06:52 Hct 36.1 % (36.0-45.0) 01/02/18 06:52 Plt Count 217 K/uL (152-406) 01/02/18 06:52 PT 11.0 SECONDS (9.5-12.5) 01/01/18 18:40 INR 0.93 01/01/18 18:40 APTT 25.8 SECONDS (24.3-36.9) 01/01/18 18:40 Sodium 139 mEq/L (135-145) 01/02/18 06:52 Potassium 3.4 mEq/L (3.6-5.0) L 01/02/18 06:52 BUN 9 mg/dL (6-20) 01/02/18 06:52 Creatinine 0.62 mg/dL (0.44-1.00) 01/02/18 06:52 Glucose 94 mg/dL (65-120) 01/02/18 06:52 Magnesium 2.2 mg/dL (1.8-2.5) 01/01/18 18:40 Total Bilirubin 0.5 mg/dL (0.3-1.2) 01/02/18 06:52 AST 16 IU/L (10-42) 01/02/18 06:52 ALT 18 IU/L (10-60) 01/02/18 06:52 Alkaline Phosphatase 50 IU/L (42-121) 01/02/18 06:52 Troponin I < 0.03 ng/mL (<0.03) 01/02/18 06:52 B-Natriuretic Peptide 63 pg/ml (<=100) 01/01/18 18:40 Triglycerides 122 mg/dL (35-160) 01/02/18 06:52 Cholesterol 122 mg/dL (<200) 01/02/18 06:52 HDL Cholesterol 42 mg/dL (29-89) 01/02/18 06:52 Cholesterol/HDL Ratio 2.90 01/02/18 06:52 Lipase 22 U/L (22-51) 01/02/18 06:52 Home Medications: Anastrozole [Arimidex*] 1 mg PO DAILY 01/02/18 Aspirin [Aspirin EC 81 MG] 81 mg PO DAILY 01/02/18 Cholecalciferol (Vitamin D3) [Vitamin D3] 1 cap PO DAILY 01/02/18 Esomeprazole Magnesium 40 mg PO DAILY 01/02/18 Lutein 6 mg PO DAILY 01/02/18 Metoprolol Tartrate [Lopressor*] 50 mg PO DAILY 01/02/18 Rosuvastatin Calcium [Crestor] 40 mg PO BEDTIME 01/02/18 Valsartan 320 mg PO DAILY 01/02/18 Patient Discharge Instructions: f/up w PCP in 2-3 days. f/up w glass novelty maker Dr. Carrizales in 2 weeks. Return to ER for worsening condition Diet: AHA Activity: Ad haider Followup: Jose Juan Carrizales MD [ACTIVE - CAN ADMIT] - (Call for appointment)
[2018-01-02] MEDS ORDERED: ROSUVASTATIN 10 MG TAB PO SCH (21:00)
[2018-01-03] MEDS ORDERED: PANTOPRAZOLE 40MG TABLET PO SCH (06:30)
== END 2018-01-02 17:39 | disposition home or self-care (01) ==
LOC: ER 17:56 → ERHOLD 18:39 → 2ND 21:31
PROVIDERS: ADMIT Internal Medicine; ATTEND Internal Medicine
DX: R07.9 Chest pain, unspecified (principal); R53.1 Weakness; E86.9 Volume depletion, unspecified; R19.7 Diarrhea, unspecified; E87.6 Hypokalemia; R79.89 Other specified abnormal findings of blood chemistry; I10 Essential (primary) hypertension; Z85.3 Personal history of malignant neoplasm of breast; Z86.73 Personal history of transient ischemic attack (TIA), and cerebral infarction without residual deficits
CPT/HCPCS: 36415; 71045; 74177; 80048; 80053; 80061; 80076; 81003; 82550; 82553; 83036; 83690; 83735; 83880; 84484; 85025; 85379; 85610; 85730; 87045; 87046; 87493; 93005; 93017; 93306; 96361; 96372; 96374; 99285; G0378; J1650; J7030; Q9967

== ENCOUNTER 2023-12-31 03:54 | Emergency (ER) | payer OTHER ==
[2023-12-31] MEDS ORDERED: METHYLPREDNISOLONE 125 MG INJ ONE (04:23)
[2023-12-31] MEDS ORDERED: FAMOTIDINE 20 MG/2 ML VIAL IV ONE (04:23)
--- NOTE | 2023-12-31 06:03 | EDPHYS ---
Physician Documentation [facility] Name: Sakina Maya Age: 73 yrs Sex: Female : 1950 Arrival Date: 12/31/2023 Time: 03:54 Bed 5 Private MD: ED Physician Aldo Maurice HPI: 12/30 05:27 This 73 yrs old Female presents to ER via Ambulatory with complaints of sp4 Allergic Reaction. 06:07 Patient states she broke out in diffuse allergic hives, most likely secondary to sp4 pneumonia vaccination which was administered this past Sunday. . Patient took 4 tablets of Benadryl Prior to arrival . Historical: - Allergies: 04:15 Cantil; cm10 04:15 Codeine; cm10 04:15 Morphine; cm10 - PMHx: 04:15 breast cancer; remission; CVA; Hypertension; Hypercholesterolemia; Osteoporosis; cm10 - PSHx: 04:15 Tonsillectomy; Partial Hysterectomy; Partial Thyroidectomy; Cholecystectomy; cm10 - Immunization history:: Adult Immunizations up to date. - Infectious Disease History:: Denies. - Social history:: Smoking status: Patient denies any tobacco usage or history of. - Family history:: not pertinent. ROS: 06:07 Constitutional: Negative for fever, chills, and weight loss, Positive for hives. sp4 06:07 All other systems are negative, Exam: 06:07 Constitutional: This is a well developed, well nourished patient who is awake, alert, sp4 and in no acute distress. Head/Face: Normocephalic, atraumatic. Eyes: Pupils equal round and reactive to light, extra-ocular motions intact. Lids and lashes normal. Conjunctiva and sclera are not injected. Cornea within normal limits. Periorbital areas with no swelling, redness, or edema. ENT: Nares patent. No nasal discharge, no septal abnormalities noted. Tympanic membranes are normal and external auditory canals are clear. Oropharynx with no redness, swelling, or masses, exudates, or evidence of obstruction, uvula midline. Mucous membranes moist. Neck: Trachea midline, no thyromegaly or masses palpated, and no cervical lymphadenopathy. Supple, full range of motion without nuchal rigidity, or vertebral point tenderness. Chest/axilla: Normal chest wall appearance and motion. Nontender with no deformity. No lesions are appreciated. Cardiovascular: Regular rate and rhythm with a normal S1 and S2. No gallops, murmurs, or rubs. Normal PMI, no JVD. No pulse deficits. Respiratory: Lungs have equal breath sounds bilaterally, clear to auscultation and percussion. No rales, rhonchi or wheezes noted. No increased work of breathing, no retractions or nasal flaring. Abdomen/GI: Soft, with normal bowel sounds. No distension or tympany. No guarding or rebound. No evidence of tenderness throughout. Back: No spinal tenderness. No costovertebral tenderness. Skin: Warm, dry with normal turgor. Normal color with no rashes, no lesions, and no evidence of cellulitis. MS/ Extremity: Pulses equal, no cyanosis. Neurovascular intact. Full, normal range of motion. Neuro: Awake and alert, GCS 15, oriented to person, place, time, and situation. Cranial nerves II-XII grossly intact. Motor strength 5/5 in all extremities. Sensory grossly intact. Psych: Awake, alert, with orientation to person, place and time. Behavior, mood, and affect are within normal limits Vital Signs: 04:12 BP 144 / 78; Pulse 75; Resp 16; Temp 97.9; Pulse Ox 98% on R/A; Weight 67.7 kg; Height cm10 5 ft. 0 in. ; Pain 0/10; 05:45 BP 117 / 60; Pulse 59; Resp 16; Pulse Ox 97% on R/A; jb4 04:12 Body Mass Index 29.15 (67.70 kg, 152.4 cm) cm10 04:12 Pain Scale: Adult cm10 [place] Coma Score: 06:07 Eye Response: spontaneous(4). Motor Response: obeys commands(6). Verbal Response: sp4 oriented(5). Total: 15. MDM: 05:24 Patient medically screened. sp4 06:07 Differential diagnosis: anaphylaxis, angioedema, bronchospasm. Data reviewed: vital sp4 signs, nurses notes. ED course: Hives have mostly resolved prior to arrival. Patient stable to for discharge home with prednisone and Benadryl. 12/30 04:17 Order name: IV Saline Lock; Complete Time: 04:27 cm10 Administered Medications: 04:31 Drug: Famotidine IVP 20 mg IVP once; dilute with 10 mL 0.9% NaCl; give over 2 minutes jb4 Route: IVP; Site: left antecubital; 04:32 Drug: MethylPrednisoLONE IVP 125 mg IVP once Route: IVP; Site: left antecubital; jb4 Disposition Summary: 12/31/23 06:02 Discharge Ordered Notes: Location: Home sp4 Problem: new sp4 Symptoms: have improved sp4 Condition: Stable sp4 Diagnosis - Allergic Hives sp4 Followup: sp4 - With: Private Physician - When: 7 - 10 days - Reason: Recheck today's complaints Discharge Instructions: - Discharge Summary Sheet sp4 - Hives, [id number] sp4 Forms: - Patient Portal Instructions sp4 Prescriptions: - Prednisone 20 mg Oral Tablet - take 2 tablets ORAL route once daily for 5 days; 10 tablet; Refills: 0, Product sp4 Selection Permitted Signatures: Marcio Jarrell RN RN jb4 Aldo Maurice MD MD sp4 Nallely Estrada RN RN cm10
--- NOTE | 2023-12-31 06:03 | ER ---
Nurse's Notes [facility] Name: Sakina Maya Age: 73 yrs Sex: Female : 1950 Arrival Date: 12/31/2023 Time: 03:54 Bed 5 Private MD: Diagnosis: Allergic Hives Presentation: 12/30 04:12 Chief complaint: Patient states: Hives onset yesterday. Pt states that she thinks she cm10 is having a reaction to the pneumonia vaccine. Pt has hives noted to her arms and neck, pt states that she has them all over her body. Pt reports some shortness of breath. Pt took 4 Benadryl since 2300. Coronavirus screen: Vaccine status: Patient reports receiving the 2nd dose of the covid vaccine. Client denies travel out of the [place] in the last 14 days. At this time, the client does not indicate any symptoms associated with coronavirus-19. Ebola Screen: Patient denies travel to an Ebola-affected area in the 21 days before illness onset. No symptoms or risks identified at this time. Onset: The symptoms/episode began/occurred yesterday. Anaphylaxis evaluation, no signs or symptoms of anaphylaxis were noted. Initial Sepsis Screen: Does the patient meet any 2 criteria? No. Patient's initial sepsis screen is negative. Does the patient have a suspected source of infection? No. Patient's initial sepsis screen is negative. Risk Assessment: Do you want to hurt yourself or someone else? Patient reports no desire to harm self or others. Onset of symptoms was December 31, 2023. 04:12 Method Of Arrival: Ambulatory cm10 04:12 Acuity: STEVEN 3 cm10 Triage Assessment: 04:16 General: Appears in no apparent distress. comfortable, Behavior is calm, cooperative. cm10 Pain: Denies pain. Neuro: No deficits noted. Level of Consciousness is awake, alert, obeys commands, Oriented to person, place, time, situation. Historical: - Allergies: 04:15 Cantil; cm10 04:15 Codeine; cm10 04:15 Morphine; cm10 - PMHx: 04:15 breast cancer; remission; CVA; Hypertension; Hypercholesterolemia; Osteoporosis; cm10 - PSHx: 04:15 Tonsillectomy; Partial Hysterectomy; Partial Thyroidectomy; Cholecystectomy; cm10 - Immunization history:: Adult Immunizations up to date. - Infectious Disease History:: Denies. - Social history:: Smoking status: Patient denies any tobacco usage or history of. - Family history:: not pertinent. Screenin:45 [place] ED Fall Risk Assessment (Adult) History of falling in the last 3 months, jb4 including since admission No falls in past 3 months (0 pts) Confusion or Disorientation No (0 pts) Intoxicated or Sedated No (0 pts) Impaired Gait No (0 pts) Mobility Assist Device Used No (0 pt) Altered Elimination No (0 pt) Score/Fall Risk Level 0 - 2 = Low Risk Oriented to surroundings, Maintained a safe environment. Abuse screen: Denies threats or abuse. Nutritional screening: No deficits noted. Tuberculosis screening: No symptoms or risk factors identified. Assessment: 04:30 Reassessment: see triage note. jb4 05:15 Reassessment: Patient appears in no apparent distress at this time. Patient and/or jb4 family updated on plan of care and expected duration. Pain level reassessed. Patient is alert, oriented x 3, equal unlabored respirations, skin warm/dry/pink. 06:11 Reassessment: Patient appears in no apparent distress at this time. Patient and/or jb4 family updated on plan of care and expected duration. Pain level reassessed. Patient is alert, oriented x 3, equal unlabored respirations, skin warm/dry/pink. Vital Signs: 04:12 BP 144 / 78; Pulse 75; Resp 16; Temp 97.9; Pulse Ox 98% on R/A; Weight 67.7 kg; Height cm10 5 ft. 0 in. ; Pain 0/10; 05:45 BP 117 / 60; Pulse 59; Resp 16; Pulse Ox 97% on R/A; jb4 04:12 Body Mass Index 29.15 (67.70 kg, 152.4 cm) cm10 04:12 Pain Scale: Adult cm10 Steve Coma Score: 06:07 Eye Response: spontaneous(4). Motor Response: obeys commands(6). Verbal Response: sp4 oriented(5). Total: 15. ED Course: 04:00 Patient arrived in ED. gm2 04:15 Triage completed. cm10 04:16 Arm band placed on Patient placed in an exam room, on a stretcher. cm10 04:27 Inserted saline lock: 20 gauge in left antecubital area, using aseptic technique. cm10 04:32 Aldo Maurice MD is Attending Physician. cm10 05:45 Patient has correct armband on for positive identification. Bed in low position. Call jb4 light in reach. Side rails up X 1. Provided Education on: discharge instructions.. 05:45 No provider procedures requiring assistance completed. IV discontinued, intact, jb4 bleeding controlled, No redness/swelling at site. Pressure dressing applied. Administered Medications: 04:31 Drug: Famotidine IVP 20 mg IVP once; dilute with 10 mL 0.9% NaCl; give over 2 minutes jb4 Route: IVP; Site: left antecubital; 04:32 Drug: MethylPrednisoLONE IVP 125 mg IVP once Route: IVP; Site: left antecubital; jb4 Medication: 05:45 VIS not applicable for this client. jb4 Outcome: 06:02 Discharge ordered by . sp4 06:13 Discharged to home ambulatory, jb4 06:13 Condition: stable 06:13 Discharge instructions given to patient, Instructed on discharge instructions, follow up and referral plans. medication usage, Demonstrated understanding of instructions, follow-up care, medications, Prescriptions given X 1, 06:13 Patient left the ED. jb4 Signatures: Marcio Jarrell RN RN jb4 Aldo Maurice MD MD sp4 Nallely Estrada RN RN [facility]
[2023-12-31 06:51] VITALS: BP 117/60; TEMP 97.9; O2SAT 97
== END 2023-12-31 06:13 | disposition home or self-care (01) ==
LOC: ER 03:54
DX: L50.0 Allergic urticaria (principal); Z88.5 Allergy status to narcotic agent; Z88.8 Allergy status to other drugs, medicaments and biological substances; Z85.3 Personal history of malignant neoplasm of breast
CPT/HCPCS: 96374; 96375; 99284; J2919